=== PATIENT | male | born 1960 | race Caucasian/White ===

== ENCOUNTER 2024-07-24 16:37 | Emergency (ER) | payer OTHER, SELFPAY ==
[2024-07-24 16:38] VITALS: BP 129/90; PULSE 18; RESP 20; TEMP 36.7; O2SAT 95; BMI 22.0
--- NOTE | 2024-07-24 17:37 | CT_ITS ---
STUDY: CT ABDOMEN AND PELVIS WITH CONTRAST REASON FOR EXAM: Male, 63 years old. abd pain, diarrhea RADIATION DOSAGE (If Supplied By Facility): CTDIvol = ( 13.82 ) mGy, DLP = ( 572.56 ) mGycm TECHNIQUE: Transaxial images were obtained from the dome of the diaphragm to the symphysis pubis without oral contrast. IV 100mL Isovue-370 was administered. Sagittal and coronal images were reconstructed. Individualized dose optimization techniques were used for this CT. COMPARISON: None. FINDINGS: The visualized lung bases are unremarkable. The visualized portions of the heart are within normal limits. Normal liver. Normal gallbladder and extrahepatic biliary system. Normal spleen. Normal pancreas. Normal bilateral adrenal glands. Normal right kidney. Normal left kidney. Normal visualized stomach. No evidence for small bowel obstruction however there appears to be very mild thickening of the folds in some of the loops of small bowel which may be consistent with nonspecific enteritis.. Normal colon. The appendix is visualized and appears normal. Atherosclerotic change of the aorta without evidence for aneurysm. Normal inferior vena cava. Normal retroperitoneum. Incompletely distended thick walled bladder likely of no significance. Small fat-containing right inguinal hernia. Lumbar spine demonstrates mild degenerative change CT/Abdomen/Pelvis W IV Cont ONLY IMPRESSION: Findings which may be consistent with mild nonspecific enteritis Small bowel series would be useful for further evaluation. No evidence for small bowel obstruction or other acute abnormality Electronically Signed: Leopoldo Mcallister MD at 18:40 EST ,
[2024-07-24] MEDS: 0.9% Normal Saline (1000mL) 1,000 ML 999 ML IV ×2 (17:41→19:36)
[2024-07-24 17:50] LABS: Absolute Neutrophil Count 11.4 X10^3/uL (2.0-7.7); Basophil# 0.06 X10^3/uL; Basophil% 0.4 % (0-1); Eosinophil# 0.01 X10^3/uL; Eosinophils% 0.1 % (0-5); Hematocrit 40.2 % (40-54); Hemoglobin 13.8 g/dL (13.0-16.5); Lymphocyte % 12.4 % (19-41); Mean Corp Hgb Conc 34.3 g/dL (32-36); Mean Corpuscular Hgb 32.7 pg (27.0-32.0); Mean Corpuscular Volume 95.3 fL (80-94); Mean Platelet Vol. 10.5 fl (6.2-12.0); Monocyte# 1.14 X10^3/uL; Monocyte% 7.9 % (0-10); NRBC Flagged by Analyzer 0 % (0-5); Neutrophil # 11.39 X10^3/uL (2.7-7.7); Neutrophil % 78.6 % (47-70); Platelet Count 597 K/mm3 (150-450); Red Blood Count 4.22 M/mm3 (4.6-6.2); White Blood Count 14.5 K/mm3 (4.4-11.0)
--- NOTE | 2024-07-24 17:51 | ED.VIS.GI ---
HPI HPI - GI History of Present Illness Chief Complaint: Diarrhea Narrative Narrative: Patient is a 63-year-old male with history of remote abdominal hernia repair in cardiac catheterization presenting for diarrhea. Patient states that he had what felt like norovirus on 06/25 through 07/01. He was never formally diagnosed. He states he was having a lot of diarrhea and gassy stomach cramps. Symptoms resolved however they returned again on 07/11. Since then he has had constant diarrhea. He started to feel very weak. He is intermittent fevers up to 101.4 most recently 2 days ago. He has had chills and bodyaches. Notes that the stool has been brown and sometimes reddish. 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 He said some mild dizziness. He started feel little short of breath. He said decreased urine output. He denies any associated nausea or vomiting. He is currently not having any abdominal pain. Denies any recent travel or antibiotics. Denies any camping or exposure to river water. Has never had a colonoscopy. No other complaints or concerns reported at this time. [facility] Medical History Hypertension Home Medications ?Medication ?Instructions ?Recorded ?Last Taken ?Type potassium chloride 20 mEq oral 20 meq PO BID 5 days #10 ea 07/24/24 Unknown Rx packet Allergy/AdvReac Type Severity Reaction Status Date / Time erythromycin base Allergy Mild CHEST PAIN Verified 07/24/24 16:38 Surgical History H/O right heart catheterization Social History household members: spouse housing: house current occupational status: employed Smoking Status: Former smoker ROS ROS ED Constitutional Constitutional ED: Reports chills, fever(s), weight loss and other Details: Lightheaded Respiratory/Chest Respiratory/Chest: Denies cough or dyspnea Gastrointestinal Gastrointestinal: Reports abdominal pain and diarrhea; Denies nausea or vomiting Genitourinary Genitourinary ED: Reports other Details: Decreased urine output ; Denies dysuria or urinary frequency Musculoskeletal Musculoskeletal: Denies arthralgias or myalgias Neurologic Neurologic: Reports weakness EXAM Physical Exam Const Vital Signs: 07/24/24 16:38 07/24/24 18:37 07/24/24 20:00 Temperature 98.1 F Temperature Source Oral Pulse Rate 18 L 94 87 Pulse Rate [Lying] Pulse Rate [Sitting (for 1 minute prior to obtaining)] Pulse Rate [Standing (for 1 minute prior to obtaining)] Respiratory Rate 20 H Blood Pressure 129/90 H 137/89 H 130/82 H Blood Pressure [Lying] Blood Pressure [Sitting (for 1 minute prior to obtaining)] Blood Pressure [Standing (for 1 minute prior to obtaining)] Blood Pressure Mean 103 105 98 Blood Pressure Mean [Lying] Blood Pressure Mean [Sitting (for 1 minute prior to obtaining)] Blood Pressure Mean [Standing (for 1 minute prior to obtaining)] Pulse Ox 95 99 99 Oxygen Delivery Method Room Air 07/24/24 21:41 07/24/24 22:00 Temperature Temperature Source Pulse Rate 84 Pulse Rate [Lying] 84 Pulse Rate [Sitting (for 1 minute prior to obtaining)] 102 H Pulse Rate [Standing (for 1 minute prior to obtaining)] 106 H Respiratory Rate Blood Pressure 133/77 H Blood Pressure [Lying] 137/85 H Blood Pressure [Sitting (for 1 minute prior to obtaining)] 135/81 H Blood Pressure [Standing (for 1 minute prior to obtaining)] 119/79 Blood Pressure Mean 95 Blood Pressure Mean [Lying] 102 Blood Pressure Mean [Sitting (for 1 minute prior to obtaining)] 99 Blood Pressure Mean [Standing (for 1 minute prior to obtaining)] 92 Pulse Ox Oxygen Delivery Method Positive well nourished and well developed General Appearance ED: well developed HEENT Reports moist mucous membranes normocephalic and atraumatic Eyes PERRL Neck supple Resp normal respiratory effort and clear to auscultation bilaterally Cardio regular rate, regular rhythm and no murmurs GI non-tender and non-distended Auscultation: hyperactive bowel sounds Palpation: soft; Negative for tender, guarding or rigid Neuro moves all extremities Sensorium / Orientation: alert Motor Exam: general weakness Psych mental status grossly normal and thought process normal Skin no wounds General Skin Exam: Negative for jaundice MDM MDM MDM Narrative Medical decision making narrative: Patient is a 63-year-old male presenting for recurrent diarrhea. He is having lightheadedness. Patient has had associated fever. Appears nontoxic. Differential includes diverticulitis, enteritis, hepatitis, LORY, electrolyte derangement. C. difficile is on the differential but he does not have any risk factors. Patient given IV fluids in the emergency room. Lab work shows a leukocytosis of 14.5. Hemoglobin normal and platelets are elevated. Suspect there is a component of hemoconcentration. Patient is hyponatremia the sodium of 128, hypokalemia with a potassium of 2.6 but otherwise normal electrolytes. Magnesium added on which is normal. He does have a mild transaminitis with elevation of AST, ALT and alkaline phosphatase. He does drink regularly however he does not normally have a transaminitis when compared to prior labs. Urinalysis shows 5-10 white blood cells with 1+ bacteria but negative nitrates. Suspect this is more reactive from what ever is causing his diarrhea. He is not complaining of dysuria. Will send for culture. CT of the abdomen pelvis shows physis with mild nonspecific enteritis. This is consistent with the patient's HPI/presentation. Lipase is normal at 22. Patient is given potassium replacement both oral and IV. Is given a second liter of IV fluid. I repeat evaluation he states he feels much better. Orthostatics are mildly positive but he is asymptomatic now. He like to go home. I did speak with ERAN Moon on-call. He recommends adding on a hepatic panel as hepatitis A is also on this differential.. Stool studies are still pending. Will have him follow-up outpatient. Recommend taking [id number] Mylanta/Gaviscon or Kaopectate for symptoms. Avoid Imodium. Will prescribe calcium supplements. Lab Data Attestation: I reviewed the patient's lab results. Labs: Laboratory Results - last 24 hr 07/24/24 07/24/24 16:54 17:56 WBC 14.5 H RBC 4.22 L Hgb 13.8 Hct 40.2 MCV 95.3 H MCH 32.7 H MCHC 34.3 RDW Std Deviation 49.0 H RDW Coeff of Triny 14.0 Plt Count 597 H MPV 10.5 Immature Gran % (Auto) 0.600 Neut % (Auto) 78.6 H Lymph % (Auto) 12.4 L [place] % (Auto) 7.9 Eos % (Auto) 0.1 Baso % (Auto) 0.4 Absolute Neuts (auto) 11.4 H Absolute Lymphs (auto) 1.80 Nucleated RBC % 0 Sodium 128 L Potassium 2.6 L* Chloride 89 L Carbon Dioxide 29.0 Anion Gap 10 BUN 12 Creatinine 1.28 Estim Creat Clear Calc 56.56 Est GFR (MDRD) Af Amer 73 Est GFR (MDRD) Non-Af 60 BUN/Creatinine Ratio 9.4 L Glucose 118 H Calcium 9.3 Magnesium 2.3 Total Bilirubin 0.80 Direct Bilirubin 0.33 H AST 131 H ALT 166 H Alkaline Phosphatase 377 H Total Protein 9.1 H Albumin 2.5 L Globulin 6.6 H Lipase 22 Urine Color Dione Urine Clarity Sl. Cloudy Urine pH 6.0 Ur Specific [place] 1.020 Urine Protein 100 H Urine Glucose (UA) Normal Urine Ketones 5 H Urine Occult Blood 25 H Urine Nitrite Negative Urine Bilirubin 1 H Urine Urobilinogen 1 H Ur Leukocyte Esterase 25 H Urine RBC 0-5 SEEN Urine WBC 5-10 SEEN Ur Squamous Epith Cells 0 SEEN Urine Bacteria 1+ Fine Granular Casts 0-5 SEEN Urine Mucus 1+ Radiography Diagnostic Testing: Clinical Impression(s) from Imaging Studies Abdomen/Pelvis CT 07/24/24 17:37 IMPRESSION: Findings which may be consistent with mild nonspecific enteritis Small bowel series would be useful for further evaluation. 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 This likely the cause of your diarrhea. This can be caused from different infections most commonly. Your stool studies are pending. Because of your diarrhea you did have some dehydration and low potassium. You may take [id number] Mylanta and Gaviscon for your symptoms. Kaopectate could also be taken for your diarrhea. Please do not take Imodium. Please follow-up with our GI doctor, Dr. Lazar. Call the office on Saturday. Continue to push fluids with electrolytes. If you develop fever, worsening pain or failure to pass out please return to the emergency room. Print Language: Niuean Disposition Disposition: Home, Self Care
[2024-07-24 17:59] LABS: Squamous Epithelial Cells - UA 0 SEEN /hpf (0-5)
[2024-07-24 18:17] LABS: AST(SGOT) 131 U/L (15-37); Alanine Aminotransfer ALT/SGPT 166 U/L (16-61); Albumin, Serum 2.5 g/dL (3.2-5.0); Alkaline Phosphatase 377 U/L (45-117); Anion Gap 10 (5-15); BUN 12 mg/dL (7-18); BUN/Creat Ratio 9.4 RATIO (10-20); Bilirubin, Direct 0.33 mg/dL (0.00-0.30); Calcium,Total 9.3 mg/dL (8.5-10.1); Chloride 89 mmol/L (98-107); Creatinine, Serum 1.28 mg/dL (0.70-1.30); EST Glomerular Filtration Rate 60 mL/min (>60); Est Glom Filt Rate - Afr Amer 73 mL/min (>60); Estimated Creatinine Clearance 56.56 ml/min; Globulin 6.6 g/dL (2.2-4.2); Glucose 118 mg/dL (74-106); Lipase 22 U/L (13-75); Magnesium 2.3 mg/dL (1.6-2.6); Potassium 2.6 mmol/L (3.5-5.1); Protein, Total 9.1 g/dL (6.4-8.2); Sodium Level 128 mmol/L (136-145)
[2024-07-24 18:18] LABS: Color, Urine Amber (Yellow); Glucose, Dipstick Normal (Normal); Ketone-Dipstick 5 mg/dl (Negative); Leukocyte Esterase-Dipstick 25 /ul (Negative); Nitrite-Dipstick Negative (Negative); Occult Blood-Urine 25 /ul (Negative); Protein-Dipstick 100 mg/dl (Negative); Urine Clarity Sl. Cloudy (Clear); Urine Urobilinogen 1 mg/dl (Normal)
[2024-07-24 18:25] LABS: Urine Bilirubin Dipstick 1 mg/dL (Negative)
[2024-07-24 18:27] LABS: Bacteria 1+ /hpf (None Seen); Fine Granular Cast- Urine 0-5 SEEN /lpf (0-5); Mucous, Urine 1+ /hpf (<or=2+); Red Blood Cells-Urine 0-5 SEEN /hpf (0-5); White Blood Cells 5-10 SEEN /hpf (0-5)
[2024-07-24 18:37] VITALS: BP 137/89; PULSE 94; O2SAT 99
[2024-07-24] MEDS: Potassium Chloride Oral Soln 20 MEQ/15 ML UDC 40 MEQ PO (19:25)
[2024-07-24] MEDS: Potassium Chloride 10mEq/100mL 10 MEQ/100 ML IV.SOLN. 100 MEQ IV BOLUS ×2 (19:25→20:28)
[2024-07-24 20:00] VITALS: BP 130/82; PULSE 87; O2SAT 99
[2024-07-24 21:41] VITALS: BP 119/79; BP 135/81; BP 137/85; PULSE 102; PULSE 106; PULSE 84
[2024-07-24 22:00] VITALS: BP 133/77; PULSE 84
[2024-07-24 22:55] VITALS: BP 131/78; PULSE 83; RESP 18; TEMP 36.7; O2SAT 98
--- NOTE | 2024-07-25 17:55 | ED.RN ---
called pt and let him know the result of his stool culture and where the prescription was called to. pt verbalized understanding and stated he is feeling better
[2024-07-26 09:06] LABS: HEPATITIS B SURFACE AG Negative (Negative); Hep C Antibodies Non Reactive (Non Reactive); Hepatitis A IgM Antibody Negative (Negative); Hepatitis B Core AB IgM Negative (Negative)
== END 2024-07-24 23:01 | disposition home or self-care (01) ==
PROVIDERS: Emergency Provider Emergency Medicine; PCP Nurse Practitioner Family; Visit Provider Emergency Medicine
DX: K52.9 Noninfective gastroenteritis and colitis, unspecified (principal); E86.0 Dehydration; E87.6 Hypokalemia; Z87.891 Personal history of nicotine dependence; R50.9 Fever, unspecified; R06.02 Shortness of breath; I10 Essential (primary) hypertension
CPT/HCPCS: 74177; 80048; 80074; 80076; 81001; 83630; 83690; 83735; 85025; 87086; 87088; 87493; 87506; 96361; 96365; 96366; 99284; Q9967; A4216